=== PATIENT | female | born 1985 | race Caucasian/White ===

== ENCOUNTER 2019-02-05 22:57 | Emergency (ER) | payer MEDICAID, OTHER ==
[~2019-02-05] VITALS: Ht 160 cm; Wt 81.8 kg
[2019-02-05 23:10] VITALS: BP 125/74; PULSE 98; RESP 18; Ht 160 cm; Wt 81.8 kg
[2019-02-06] MEDS ORDERED: KETOROLAC 30 MG INJ IM STA (00:52)
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
[2019-02-06] MEDS ORDERED: IBUPROFEN 800 MG TAB PO ONE (01:00)
[2019-02-06] MEDS ORDERED: IBUP800T48 PO (02:49)
== END 2019-02-06 03:35 | disposition home or self-care (01) ==
LOC: FTE 22:57
DX: M25.562 Pain in left knee (principal); F17.210 Nicotine dependence, cigarettes, uncomplicated
CPT/HCPCS: 73562; Z7502; Z7610; J1885